=== PATIENT | female | born 1960 | race Caucasian/White ===

== ENCOUNTER 2017-04-30 12:09 | Emergency (ER) | payer MEDICAID, OTHER ==
[~2017-04-30] VITALS: Ht 170.2 cm; Wt 50.1 kg
[~2017-04-30 12:09] MED LIST: GABA300C10 PO; NAPR375T PO; TRAZ150T62 PO
[2017-04-30 12:14] VITALS: BP 126/88
== END 2017-04-30 13:02 | disposition home or self-care (01) ==
LOC: ED 12:54
DX: S50.862A Insect bite (nonvenomous) of left forearm, initial encounter (principal); S50.861A Insect bite (nonvenomous) of right forearm, initial encounter; S70.362A Insect bite (nonvenomous), left thigh, initial encounter; S70.361A Insect bite (nonvenomous), right thigh, initial encounter; W57.XXXA Bitten or stung by nonvenomous insect and other nonvenomous arthropods, initial encounter; Y93.89 Activity, other specified; Y92.89 Other specified places as the place of occurrence of the external cause; Y99.8 Other external cause status
CPT/HCPCS: 99283

== ENCOUNTER 2019-07-24 05:28 | Emergency (ER) | payer MEDICAID ==
[~2019-07-24] VITALS: Ht 170.2 cm; Wt 59.0 kg
[2019-07-24 05:32] VITALS: BP 134/99
[2019-07-24] MEDS ORDERED: SODIUM CHLORIDE FLUSH 10ML SYR IVF ONE (06:00)
[2019-07-24 06:20] LABS: MICROSCOPIC NOT IND
[2019-07-24 06:25] LABS: BASOPHILS # (AUTO) 0.04 x10^3/uL (0-0.1); BASOPHILS % (AUTO) 1 % (0-1); EOSINOPHILS # (AUTO) 0.34 x10^3/uL (0-0.4); EOSINOPHILS % (AUTO) 5 % (1-7); LYMPHOCYTES % (AUTO) 23 % (22-44); MD NO; MEAN CORPUSCULAR HEMOGLOBIN 29.4 pg (27.0-34.8); MEAN CORPUSCULAR VOLUME 89.1 fL (80-100); MEAN PLATELET VOLUME 7.1 fL (7.4-10.4); MONOCYTES # (AUTO) 0.55 x10^3/uL (0.2-0.8); MONOCYTES % (AUTO) 8 % (2-9); NEUTROPHILS # (AUTO) 4.19 x10^3/uL (1.8-6.8); NEUTROPHILS % (AUTO) 63 % (42-75); PLATELET COUNT 290 x10^3/uL (130-400); RED BLOOD COUNT 4.49 x10^6/uL (3.82-5.3)
[2019-07-24 06:33] LABS: CULTURE INDICATED? NO
--- NOTE | 2019-07-24 06:58 | NUR ---
pt with LLQ pain that started 3 days ago. pain in the left groin also x 3 days.
--- NOTE | 2019-07-24 06:59 | NUR ---
report to jasmin hodge
--- NOTE | 2019-07-24 07:47 | NUR ---
AWAITING LAB RESULTS PRIOR TO CT SCAN
[2019-07-24 07:50] LABS: ALANINE AMINOTRANSFERASE 15 U/L (12-78); ALBUMIN 3.3 g/dL (3.4-5.0); ANION GAP 7 mmol/L (5-15); CALCIUM 8.9 mg/dL (8.5-10.1); CHLORIDE 106 mmol/L (98-107); CREATININE 0.67 mg/dL (0.55-1.02)
[2019-07-24 07:53] LABS: ALKALINE PHOSPHATASE 105 U/L (45-117); BILIRUBIN,TOTAL 0.3 mg/dL (0.2-1.0); TOTAL PROTEIN 7.2 g/dL (6.4-8.2)
[2019-07-24] MEDS ORDERED: HYDROcodone/APAP 5/325 TABLET PO ONE (09:00)
[2019-07-24] MEDS ORDERED: HYDROcodone/APAP 5/325 TABLET ONE (09:02)
[2019-07-24] MEDS ORDERED: OMNIPAQUE 350 MG/ML, 100ML BOTTLE ONE (09:56)
== END 2019-07-24 09:19 | disposition home or self-care (01) ==
LOC: ED 07:34
DX: K40.90 Unilateral inguinal hernia, without obstruction or gangrene, not specified as recurrent (principal); R10.32 Left lower quadrant pain; F17.200 Nicotine dependence, unspecified, uncomplicated
CPT/HCPCS: 36415; 74177; 80053; 81003; 85025; 93005; 99284; Q9967

== ENCOUNTER 2020-02-20 08:26 | Emergency (ER) | payer MEDICAID ==
[~2020-02-20] VITALS: Ht 167.6 cm; Wt 54.0 kg
[2020-02-20 10:41] LABS: BASOPHILS # (AUTO) 0.01 x10^3/uL (0-0.1); BASOPHILS % (AUTO) 0 % (0-1); EOSINOPHILS # (AUTO) 0.02 x10^3/uL (0-0.4); EOSINOPHILS % (AUTO) 0 % (1-7); LYMPHOCYTES # (AUTO) 0.91 x10^3/uL (1-3.4); LYMPHOCYTES % (AUTO) 9 % (22-44); MD NO; MEAN CORPUSCULAR HEMOGLOBIN 32.9 pg (27.0-34.8); MEAN CORPUSCULAR HGB CONC 34.2 g/dL (32.4-35.8); MEAN PLATELET VOLUME 7.7 fL (7.4-10.4); MONOCYTES # (AUTO) 0.52 x10^3/uL (0.2-0.8); MONOCYTES % (AUTO) 5 % (2-9); NEUTROPHILS # (AUTO) 8.34 x10^3/uL (1.8-6.8); NEUTROPHILS % (AUTO) 85 % (42-75); PLATELET COUNT 333 x10^3/uL (130-400); RED BLOOD COUNT 4.54 x10^6/uL (3.82-5.3); RED CELL DISTRIBUTION WIDTH 14.3 % (9.6-15.2)
[2020-02-20] MEDS ORDERED: HYDROcodone/APAP 5/325 TABLET PO ONE (11:00)
[2020-02-20] MEDS ORDERED: HYDROcodone/APAP 5/325 TABLET ONE (11:05)
--- NOTE | 2020-02-20 11:10 | NUR ---
MEDICATED FOR HIP AND LOW BACK PAIN NOTED ON OCT. AWAITING DISPO
[2020-02-20 11:14] VITALS: BP 144/88
[2020-02-20 11:38] LABS: CHLORIDE 102 mmol/L (98-107)
[2020-02-20 11:42] LABS: ALANINE AMINOTRANSFERASE 19 U/L (12-78); ALBUMIN 4.2 g/dL (3.4-5.0); ANION GAP 9 mmol/L (5-15); CALCIUM 10.1 mg/dL (8.5-10.1); CREATININE 0.52 mg/dL (0.55-1.02)
[2020-02-20 11:43] LABS: C-REACTIVE PROTEIN, QUANT < 0.02 mg/dL (0.02-0.49)
[2020-02-20 11:58] LABS: ALKALINE PHOSPHATASE 91 U/L (45-117); BILIRUBIN,TOTAL 0.5 mg/dL (0.2-1.0); CREATINE KINASE, TOTAL 1268 U/L (26-192); TOTAL PROTEIN 8.2 g/dL (6.4-8.2)
[2020-02-20] MEDS ORDERED: POTASSIUM CHLORIDE 20 MEQ TAB.ER.PRT PO ONE (12:00)
--- NOTE | 2020-02-20 12:45 | NUR ---
BREAK RN: PT ANXIOUS TO GO HOME. TEATS RESULTED AND CHART UP FOR RECHECK
[2020-02-20] MEDS ORDERED: POTASSIUM CHLORIDE 20 MEQ TAB.ER.PRT ONE (13:12)
== END 2020-02-20 14:15 | disposition home or self-care (01) ==
LOC: ED 10:46
DX: M54.9 Dorsalgia, unspecified (principal); Z20.828 Contact with and (suspected) exposure to other viral communicable diseases; G89.29 Other chronic pain; R06.00 Dyspnea, unspecified; E87.6 Hypokalemia; M79.10 Myalgia, unspecified site; R94.31 Abnormal electrocardiogram [ECG] [EKG]; I51.7 Cardiomegaly
CPT/HCPCS: 36415; 71045; 80053; 82550; 82728; 83605; 83615; 85025; 86140; 87040; 87635; 93005; 99285

== ENCOUNTER 2020-02-24 18:58 | Emergency (ER) | payer MEDICAID ==
[~2020-02-24] VITALS: Ht 170.2 cm; Wt 48.0 kg
--- NOTE | 2020-02-24 19:28 | NUR ---
Pt here for trouble breathing. Pt states that she feels like her throat "closes up sometimes". States that this started last night. Resp even and unlabored. No signs of acute distress.
--- NOTE | 2020-02-24 20:05 | NUR ---
Pt tearful, anxious, stating that she cant breath, Pt does not appear in resp distress. SpO2 97%. Pt's respirations even and unlabored.
--- NOTE | 2020-02-24 20:07 | NUR ---
Pt completing po challenge. Pt able to swallow.
--- NOTE | 2020-02-24 20:33 | NUR ---
RECEIVED REPORT FROM RONIT TOBRA. ASSUMING CARE AT THIS TIME.
--- NOTE | 2020-02-24 20:37 | NUR ---
ALL RESULTS ARE BACK AT THIS TIME. CHART UP FOR RECHECK.
--- NOTE | 2020-02-24 20:49 | NUR ---
MD AT BEDSIDE TO UPDATE PT ON POC.
[2020-02-24] MEDS ORDERED: LORazepam 1MG TABLET ONE (20:58)
[2020-02-24] MEDS ORDERED: LORazepam 1MG TABLET PO ONE (21:00)
[2020-02-24 21:02] VITALS: BP 173/99
--- NOTE | 2020-02-24 21:02 | NUR ---
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 PT GOING TO XRAY.
--- NOTE | 2020-02-24 21:26 | NUR ---
ALL RESULTS ARE BACK AT THIS TIME. CHART UP FOR RECHECK.
--- NOTE | 2020-02-24 21:47 | NUR ---
PROVIDER AT BEDSIDE TO UPDATE PT ON POC.
== END 2020-02-24 22:19 | disposition home or self-care (01) ==
LOC: ED 21:00
DX: J45.909 Unspecified asthma, uncomplicated (principal); R06.02 Shortness of breath; R94.31 Abnormal electrocardiogram [ECG] [EKG]; F17.210 Nicotine dependence, cigarettes, uncomplicated
CPT/HCPCS: 70360; 71045; 93005; 99284; J7512

== ENCOUNTER 2020-03-24 19:55 | Observation (INO) | payer MEDICAID ==
[~2020-03-24] VITALS: Ht 167.6 cm; Wt 53.2 kg
[2020-03-24] MEDS ORDERED: NALOXONE 0.4 MG/ML, 1ML ONE (20:08)
--- NOTE | 2020-03-24 20:38 | NUR ---
LATE ENTRY: PT BIB EMS AFTER APPARENTLY FOUND PT ON FLOOR OUT OF BED. PT WITH ALOC. UPON ARRIVAL, EMS STATES PT WAS HAVING OCCASIONAL OUTBURSTS BUT OTHERWISE WAS OBTUNDED; [facility] 10. FSBS FOR EMS 80, WITH NORMAL VS. PT STATES PT USES ONLY NON-NARCOTIC ANALGESIA FOR CHRONIC PAIN, NO OTHER SIGNIFICANT MEDICAL HISTORY. PIV ESTABLISHED BY [facility] EN ROUTE. UPON ARRIVAL TO [facility], ED, PT PLACED INTO GOWN IN [facility]. EKG OBTAINED AND PT ATTACHED TO VS AND CANDLE WRAPPER. VSS. PT GIVEN 0.4 NARCAN BY THIS RN WITH NO IMPROVEMENT IN LOC. ORDERS RECEIVED. PT NOW AT BS. PT WITH CALL LIGHT WITHIN REACH. PT STRAIGHT CATHED PER POLICY WITH AMADOU YIP AT BS TO ASSIST. UA SENT TO LAB. LAB AT BS AT THIS TIME FOR ABG AND LABS.
[2020-03-24 20:41] LABS: BASOPHILS # (AUTO) 0.03 x10^3/uL (0-0.1); BASOPHILS % (AUTO) 1 % (0-1); EOSINOPHILS # (AUTO) 0.28 x10^3/uL (0-0.4); EOSINOPHILS % (AUTO) 5 % (1-7); LYMPHOCYTES # (AUTO) 2.25 x10^3/uL (1-3.4); LYMPHOCYTES % (AUTO) 39 % (22-44); MD NO; MEAN CORPUSCULAR HEMOGLOBIN 33.5 pg (27.0-34.8); MEAN CORPUSCULAR HGB CONC 34.1 g/dL (32.4-35.8); MEAN CORPUSCULAR VOLUME 98.1 fL (80-100); MEAN PLATELET VOLUME 6.7 fL (7.4-10.4); MONOCYTES # (AUTO) 0.54 x10^3/uL (0.2-0.8); MONOCYTES % (AUTO) 9 % (2-9); NEUTROPHILS # (AUTO) 2.67 x10^3/uL (1.8-6.8); NEUTROPHILS % (AUTO) 46 % (42-75); PLATELET COUNT 290 x10^3/uL (130-400); RED CELL DISTRIBUTION WIDTH 14.8 % (9.6-15.2)
[2020-03-24 20:49] LABS: ALANINE AMINOTRANSFERASE 12 U/L (12-78); ANION GAP 6 mmol/L (5-15); CALCIUM 7.8 mg/dL (8.5-10.1); CHLORIDE 107 mmol/L (98-107); CREATININE 0.67 mg/dL (0.55-1.02)
--- NOTE | 2020-03-24 20:50 | NUR ---
[facility]
--- NOTE | 2020-03-24 20:50 | NUR ---
Skip renee in ED - 03/24/20 at [address] JANAE PT [address] VIA [facility] AT THIS TIME
[2020-03-24 20:51] LABS: ALKALINE PHOSPHATASE 84 U/L (45-117); BILIRUBIN,TOTAL 0.7 mg/dL (0.2-1.0); TOTAL PROTEIN 5.9 g/dL (6.4-8.2)
[2020-03-24 21:01] LABS: AMPHETAMINE SCREEN, URINE Negative (Negative); BARBITURATE SCREEN, URINE Negative (Negative); BENZODIAZEPINE SCREEN, URINE Negative (Negative); CANNABINOID SCREEN, URINE Positive (Negative); COCAINE SCREEN, URINE Negative (Negative); METHADONE SCREEN, URINE Negative (Negative); OPIATE SCREEN, URINE Positive (Negative)
--- NOTE | 2020-03-24 21:07 | NUR ---
XRAY AT AT THIS TIME.
[2020-03-24] MEDS ORDERED: SODIUM CHLORIDE 0.9% 1,000 ML IV SCH (21:27)
[2020-03-24] MEDS ORDERED: DOCUSATE 100 MG CAPSULE PO PRN (21:30)
[2020-03-24] MEDS ORDERED: ALBUTEROL/IPRATROPIUM 2.5MG/0.5MG, 3 ML NPPB ONE (21:30)
[2020-03-24] MEDS ORDERED: SODIUM CHLORIDE 0.9% 1,000ML IVBOLUS ONE (21:30)
[2020-03-24] MEDS ORDERED: POTASSIUM CHLORIDE 40 MEQ in SODIUM CHLORIDE 0.9% 500 ML IV ONE (21:30)
[2020-03-24 21:31] LABS: MICROSCOPIC INDICATED
[2020-03-24] MEDS ORDERED: ALBUTEROL/IPRATROPIUM 2.5MG/0.5MG, 3 ML ONE (21:43)
[2020-03-24 22:11] LABS: % IRON SATURATION 27 % (20-55); IRON LEVEL 63 mcg/dL (50-170); TOTAL IRON BINDING CAPACITY 234 mcg/dL (250-450)
[2020-03-24 22:14] LABS: TROPONIN I < 0.015 ng/mL (0.000-0.045)
--- NOTE | 2020-03-25 00:18 | NUR ---
REPORT OF PT TO AMADOU RYDER. ALL QUESTIONS ANSWERED. PT TRANSPORTED TO FLOOR VIA GURNEY AT THIS TIME WITH TECHS. PT VSS PRIOR TO PT TRANSPORT.
[2020-03-25 02:35] VITALS: BP 148/91
[2020-03-25 03:45] VITALS: BP 136/90
[2020-03-25 07:04] LABS: CALCIUM 8.1 mg/dL (8.5-10.1); CHLORIDE 117 mmol/L (98-107)
[2020-03-25 07:05] LABS: CREATININE 0.56 mg/dL (0.55-1.02)
[2020-03-25 07:16] LABS: ANION GAP 3 mmol/L (5-15)
[2020-03-25 09:12] VITALS: BP 133/93
[2020-03-25 11:47] VITALS: BP 133/93
[2020-03-25 14:20] VITALS: BP 136/87
[2020-03-25] MEDS ORDERED: ENOXAPARIN 40 MG/0.4 ML SQ SCH (14:30)
[2020-03-25 20:12] VITALS: BP 137/81
[2020-03-26 00:11] VITALS: BP 154/94
[2020-03-26 07:50] VITALS: BP 137/89
[2020-03-26] MEDS ORDERED: TAMSULOSIN 0.4 MG CAP.ER.24H PO SCH (09:00)
== END 2020-03-26 13:14 | disposition home or self-care (01) ==
LOC: ED 22:29 → EDIP 22:42 → 5SO 23:47 → DCLOUNGE 03-26 13:00
PROVIDERS: ADMIT Family Medicine; ATTEND Internal Medicine
DX: G92 Toxic encephalopathy (principal); E87.6 Hypokalemia; G62.9 Polyneuropathy, unspecified; G89.4 Chronic pain syndrome; E44.1 Mild protein-calorie malnutrition; J45.909 Unspecified asthma, uncomplicated; F17.200 Nicotine dependence, unspecified, uncomplicated; Z79.899 Other long term (current) drug therapy; Z86.19 Personal history of other infectious and parasitic diseases
CPT/HCPCS: 36600; 70450; 71045; 80048; 80053; 80307; 81001; 82140; 82803; 82962; 83540; 83550; 83735; 84443; 84484; 85025; 93005; 96365; 96366; 96372; 99291; G0378; J1650; J3480; J7030; J7040

== ENCOUNTER 2020-06-15 13:57 | Emergency (ER) | payer MEDICAID ==
[~2020-06-15] VITALS: Ht 170.2 cm; Wt 47.8 kg
--- NOTE | 2020-06-15 15:46 | NUR ---
MOTION PICTURE SET UP WORKER: PT TO ROOM FROM LOBBY VIA W/C
--- NOTE | 2020-06-15 16:21 | NUR ---
PT ENDORSED TO AMADOU MOORE.
[2020-06-15] MEDS ORDERED: ACETAMINOPHEN 500 MG TABLET PO ONE (16:30)
[2020-06-15] MEDS ORDERED: ACETAMINOPHEN 500 MG TABLET ONE (16:34)
[2020-06-15 16:38] VITALS: BP 138/92
--- NOTE | 2020-06-15 16:38 | NUR ---
RECEIVED REPORT FROM JUDY TOBAR. CARE ASSUMED. PT MEDICATED NOTED IN [facility] PER MD ORDER FOR 04/19 BILATERAL HIP PAIN. VSS. 60 Y/O F PRESENTS STATING "PAIN IN BOTH HIPS AND DOWN INTO THIGHS FOR SINCE LAST JUNE, DIFFICULTY GETTING INTO MY PRIMARY DOCTOR WITH ALL THE COVID PANDEMIC." RATES PAIN /. CMS INTACT. BILATERAL PEDAL PULSES NORMAL. NO SWELLING OR BRUISING NOTED. DENIES RECENT INJURY OR TRAUMA. CALL LIGHT IN REACH. FALL PRECAUTIONS IN PLACE. PT TO BE DISCHARGED PER ERP.
[2020-06-15] MEDS ORDERED: TRAZ300T2 PO (16:45)
[2020-06-15] MEDS ORDERED: IBUP-1222 PO (16:45)
[2020-06-15] MEDS ORDERED: GABA600T7 PO (16:45)
--- NOTE | 2020-06-15 16:58 | NUR ---
Patient/Caregiver given discharge instructions and they have confirmed that they understand the instructions. Patient ambulatory with steady gait.
== END 2020-06-15 16:59 | disposition home or self-care (01) ==
LOC: ED 15:53
DX: G89.29 Other chronic pain (principal); M54.5 Low back pain
CPT/HCPCS: 72190; 99283

== ENCOUNTER → 2020-08-15 | Outpatient (CLI) | payer MEDICAID ==
[~2020-08-15] MED LIST changes: +GABA600T7 PO; +IBUP-1222 PO; +TRAZ300T2 PO
== END | disposition home or self-care (01) ==
LOC: CFH 12:19
PROVIDERS: ATTEND Orthopaedic Surgery Orthopaedic Surgery of the Spine
DX: M51.27 Other intervertebral disc displacement, lumbosacral region (principal); M47.817 Spondylosis without myelopathy or radiculopathy, lumbosacral region; M50.33 Other cervical disc degeneration, cervicothoracic region; M48.07 Spinal stenosis, lumbosacral region; M40.292 Other kyphosis, cervical region; M25.78 Osteophyte, vertebrae; M48.03 Spinal stenosis, cervicothoracic region
CPT/HCPCS: 72141; 72148

== ENCOUNTER 2020-12-03 15:28 | Emergency (ER) | payer MEDICAID ==
[~2020-12-03] VITALS: Ht 170.2 cm; Wt 43.2 kg
[2020-12-03 15:44] VITALS: BP 147/97
== END 2020-12-03 16:40 | disposition home or self-care (01) ==
LOC: ED 16:30
DX: L03.811 Cellulitis of head [any part, except face] (principal); L03.211 Cellulitis of face; J45.909 Unspecified asthma, uncomplicated
CPT/HCPCS: 99283